=== PATIENT | female | born 1995 | race Caucasian/White ===

== ENCOUNTER → 2024-08-09 11:02 | Outpatient (REF) | payer BC, SELFPAY ==
[2024-08-09 11:25] VITALS: BP 114/78; BP_SYST 81
[2024-08-09 11:35] LABS: INR 1.09; PT 14.4 Sec (11.4-14.6)
[2024-08-09 13:40] LABS: Spinal Fluid Glucose 61 mg/dl (40-70); Spinal Fluid Protein 48 mg/dl (12-60)
[2024-08-09 13:45] VITALS: BP 113/79
[2024-08-09 13:52] LABS: CSF Color Colorless; CSF Tube # 4
[2024-08-09 13:53] LABS: CSF Clarity Clear
[2024-08-09 13:55] LABS: Red Cell Count/CSF 4 mm^3; White Cell Count/CSF 1 mm^3 (0-5)
== END ==
LOC: RADI 11:02
PROVIDERS: ATTENDING PHYSICIAN Internal Medicine; FAMILY PHYSICIAN Family Medicine
DX: R51.9 Headache, unspecified (principal); Z01.812 Encounter for preprocedural laboratory examination; Z01.818 Encounter for other preprocedural examination
CPT/HCPCS: 36415; 62328; 82945; 84157; 85610; 87015; 87070; 87205; 87483; 89051